=== PATIENT | female | born 2000 | race Caucasian/White ===

== ENCOUNTER 2022-05-24 08:00 | Outpatient (CLI) | payer OTHER ==
[2022-05-24 14:26] LABS: MUDS CUTOFF CONCENTRATIONS CUTOFF CONC BELOW:
[2022-05-24 14:44] LABS: AMPHETAMINE SCREEN,URINE NEGATIVE (NEGATIVE); BARBITURATE SCREEN,UR NEGATIVE (NEGATIVE); BENZODIAZEPINES SCREEN, URINE NEGATIVE (NEGATIVE); COCAINE SCREEN URINE NEGATIVE (NEGATIVE); METHADONE SCREEN, URINE NEGATIVE (NEGATIVE); METHAMPHETAMINES SCREEN, URINE NEGATIVE (NEGATIVE); OPIATE SCREEN, URINE NEGATIVE (NEGATIVE); OXYCODONE SCREEN, URINE NEGATIVE (NEGATIVE); PROPOXYPHENE SCREEN, URINE NEGATIVE (NEGATIVE); THC CANNABINOID SCREEN, URINE POSITIVE (NEGATIVE); TRICYCLIC ANTIDEPRESSANT,URINE NEGATIVE (NEGATIVE)
[2022-05-24 19:30] LABS: BACTERIAL VAGINOSIS DNA NEGATIVE (NEGATIVE); CANDIDA GLABRATA DNA NEGATIVE (NEGATIVE); CANDIDA GROUP DNA NEGATIVE (NEGATIVE); CANDIDA KRUSEI DNA NEGATIVE (NEGATIVE); TRICHOMONAS VAGINALIS DNA NEGATIVE (NEGATIVE)
[2022-05-24 20:09] LABS: CHLAMYDIA TRACHOMATIS DNA NEGATIVE (NEGATIVE); NEISSERIA GONORRHOEAE DNA NEGATIVE (NEGATIVE)
== END 2022-05-24 23:59 | disposition home or self-care (01) ==
LOC: LAB.S 08:00
PROVIDERS: ATTEND Registered Nurse
DX: R10.2 Pelvic and perineal pain (principal); Z20.2 Contact with and (suspected) exposure to infections with a predominantly sexual mode of transmission
CPT/HCPCS: 80306; 81514; 87086; 87491; 87591; 87661